=== PATIENT | male | born 1955 | race Caucasian/White ===

== ENCOUNTER 2019-02-28 12:59 | Day surgery (SDC) | payer OTHER ==
[~2019-02-28] VITALS: Ht 188 cm; Wt 73.9 kg
[2019-02-28] MEDS ORDERED: LACTATED RINGERS 1,000 ML IV SCH (13:31)
[2019-02-28] MEDS ORDERED: MULT-257 PO (13:33)
[2019-02-28 13:57] VITALS: BP 143/87
[2019-02-28] MEDS ORDERED: LIDOCAINE-MPF 1%, 2ML INFIL ONE (14:00)
[2019-02-28] MEDS ORDERED: FENTANYL PF 250 MCG/5ML ONE (14:30)
[2019-02-28] MEDS ORDERED: MIDAZOLAM 1 MG/ML, 2ML ONE (14:30)
[2019-02-28] MEDS ORDERED: EPINEPHRINE 1 MG/ML, 1ML ONE (14:55)
[2019-02-28] MEDS ORDERED: BUPIVACAINE/PF 0.5% ONE (14:55)
[2019-02-28] MEDS ORDERED: LABETALOL 5MG/ML, 20ML IV PRN (16:00)
[2019-02-28] MEDS ORDERED: DIAZEPAM 5 MG/ML, 2ML IVPush PRN (16:00)
[2019-02-28] MEDS ORDERED: PROMETHAZINE 25 MG/ML, 1ML IV PRN (16:00)
[2019-02-28] MEDS ORDERED: HYDROmorphone 2 MG/ML, 1ML IVPush PRN (16:00)
[2019-02-28] MEDS ORDERED: FENTANYL PF 100 MCG/2ML IV PRN (16:00)
[2019-02-28] MEDS ORDERED: ALBUTEROL SULFATE 2.5 MG/3 ML NPPB PRN (16:00)
[2019-02-28] MEDS ORDERED: hydrALAzine 20 MG/ML, 1ML IV PRN (16:00)
[2019-02-28] MEDS ORDERED: OXYcodone 5 MG/5 ML ORAL.SOL UDC PO PRN (16:00)
[2019-02-28] MEDS ORDERED: KETOROLAC 30 MG/1 ML IV PRN (16:00)
[2019-02-28] MEDS ORDERED: MEPERIDINE/PF 25MG/0.5ML IVPush PRN (16:00)
[2019-02-28] MEDS ORDERED: ACETAMINOPHEN 325 MG TABLET PO PRN (16:00)
[2019-02-28] MEDS ORDERED: DEXAMETHASONE 4 MG/ML, 1ML ONE (16:04)
[2019-02-28] MEDS ORDERED: ONDANSETRON 2MG/ML, 2ML ONE (16:04)
[2019-02-28] MEDS ORDERED: PROPOFOL 10 MG/ML, 20ML ONE (16:04)
[2019-02-28] MEDS ORDERED: CEFAZOLIN 1,000 MG ONE (16:04)
[2019-02-28] MEDS ORDERED: KETOROLAC 30 MG/1 ML ONE (16:33)
[2019-02-28] MEDS ORDERED: FENTANYL PF 100 MCG/2ML ONE ×2 (16:33→17:13)
[2019-02-28] MEDS ORDERED: OXYcodone 5 MG/5 ML ORAL.SOL UDC ONE ×2 (16:33→17:14)
[2019-02-28] MEDS ORDERED: MEPERIDINE/PF 25MG/ML,1ML ONE (17:13)
[2019-02-28] MEDS ORDERED: HYDROmorphone 2 MG/ML, 1ML ONE (17:13)
== END 2019-02-28 18:30 | disposition home or self-care (01) ==
LOC: OR 12:59
PROVIDERS: ATTEND Surgery
DX: K40.90 Unilateral inguinal hernia, without obstruction or gangrene, not specified as recurrent (principal); Z98.890 Other specified postprocedural states
CPT/HCPCS: 49505; 93005; C1781; J0171; J0690; J1100; J1885; J2250; J2405; J2704; J3010; J7120